=== PATIENT | female | born 1965 | race Caucasian/White ===

== ENCOUNTER 2021-12-10 14:35 | Outpatient (CLI) | payer BC, SELFPAY ==
--- NOTE | ~2021-12-10 | XR_ITS ---
EXAMINATION: XR knee LT 3V DATE: 12/10/2021 16:25 INDICATION: Left knee pain TECHNIQUE: Standing AP, lateral and sunrise views of the left knee were obtained. COMPARISON: None. FINDINGS: Alignment is normal. No fracture. Mild joint space narrowing in the lateral compartment with small m arginal osteophytes. Additional small marginal osteophytes at the patellofemoral compartment. 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 1.8 x 1.5 cm sclerotic lesion likely loose osteochondral body projecting between t he medial and lateral femoral condyles at the posterior aspect of the intercondylar notch. No joint e ffusion/layering lipohemarthrosis. Soft tissues are unremarkable. IMPRESSION: 1. Mild lateral and patellofemoral osteoarthritis. No joint effusion or acute osseous tiny calcificat ion along the medial femoral condyle consistent with a Ana-Stieda lesion related to chronic me dial collateral ligament sprain. Reviewed, dictated and finalized at location A. IMPRESSION: 1. Mild lateral and patellofemoral osteoarthritis. 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
--- NOTE | ~2021-12-10 | XR_ITS ---
EXAMINATION: XR hip LT min 2V DATE: 12/10/2021 16:25 INDICATION: Left hip pain TECHNIQUE: Anteroposterior and frog-leg lateral views of the left hip were obtained. COMPARISON: None. FINDINGS: Bone alignment is normal. No fracture or suspected avascular necrosis. Left hip joint space is normal . Tiny heterotopic ossicle near the tip the greater trochanter. A few phleboliths in the pelvis. IMPRESSION: 1. Essentially negative left hip radiographs. Reviewed, dictated and finalized at location A.
== END 2021-12-10 14:36 ==
PROVIDERS: PCP Nurse Practitioner Family; Visit Provider Nurse Practitioner Family
DX: M25.552 Pain in left hip (principal); M25.562 Pain in left knee; M17.12 Unilateral primary osteoarthritis, left knee
CPT/HCPCS: 73502; 73562